=== PATIENT | female | born 1950 | race Caucasian/White ===

== ENCOUNTER 2017-04-29 13:15 | Outpatient (CLI) | payer OTHER | END 2017-04-29 13:31 | disposition home or self-care (01) | LOC: NUCLEAR 13:15 | DX: E11.65 Type 2 diabetes mellitus with hyperglycemia (principal); N18.9 Chronic kidney disease, unspecified ==

== ENCOUNTER 2017-08-21 11:09 | Outpatient (CLI) | payer OTHER | END 2017-08-21 11:25 | disposition home or self-care (01) | LOC: MAMO-SONO 11:09 | DX: N60.11 Diffuse cystic mastopathy of right breast (principal); Z12.31 Encounter for screening mammogram for malignant neoplasm of breast ==

== ENCOUNTER 2019-05-18 10:07 | Outpatient (CLI) | payer OTHER | END 2019-05-18 10:20 | disposition home or self-care (01) | LOC: MAMO-SONO 10:07 | DX: Z12.31 Encounter for screening mammogram for malignant neoplasm of breast (principal); N60.11 Diffuse cystic mastopathy of right breast; E03.8 Other specified hypothyroidism; E03.5 Myxedema coma; E04.2 Nontoxic multinodular goiter ==

== ENCOUNTER 2021-05-30 10:22 | Outpatient (CLI) | payer OTHER | END 2021-05-30 10:28 | disposition home or self-care (01) | LOC: MAMO-SONO 10:22 | PROVIDERS: ATTEND Obstetrics & Gynecology | DX: N60.11 Diffuse cystic mastopathy of right breast (principal) ==

== ENCOUNTER 2022-07-29 10:36 | Outpatient (CLI) | payer OTHER | END 2022-07-29 10:48 | disposition home or self-care (01) | LOC: RAD 10:36 | PROVIDERS: ATTEND Internal Medicine Pulmonary Disease | DX: J44.1 Chronic obstructive pulmonary disease with (acute) exacerbation (principal) ==

== ENCOUNTER 2022-07-31 13:21 | Outpatient (CLI) | payer OTHER | END 2022-07-31 13:24 | disposition home or self-care (01) | LOC: NUCLEAR 13:21 | PROVIDERS: ATTEND Obstetrics & Gynecology | DX: N81.0 Urethrocele (principal); M81.0 Age-related osteoporosis without current pathological fracture ==

== ENCOUNTER 2022-09-25 11:08 | Outpatient (CLI) | payer OTHER | END 2022-09-25 11:16 | disposition home or self-care (01) | LOC: MAMO-SONO 11:08 | PROVIDERS: ATTEND Obstetrics & Gynecology | DX: N60.11 Diffuse cystic mastopathy of right breast (principal); Z12.31 Encounter for screening mammogram for malignant neoplasm of breast ==

== ENCOUNTER 2023-11-05 09:01 | Outpatient (CLI) | payer OTHER ==
[~2023-11-05 09:01] MED LIST: PANTOPRAZOLE SO20 MG PO; SYNTHROID75 MCG PO; ZYRTEC10 M3 PO
== END 2023-11-05 09:07 | disposition home or self-care (01) ==
LOC: MAMO-SONO 09:01
PROVIDERS: ATTEND Surgery
DX: N60.11 Diffuse cystic mastopathy of right breast (principal); N60.12 Diffuse cystic mastopathy of left breast; Z12.31 Encounter for screening mammogram for malignant neoplasm of breast

== ENCOUNTER 2024-08-12 07:06 | Outpatient (CLI) | payer OTHER | END 2024-08-12 07:08 | disposition home or self-care (01) | LOC: NUCLEAR 07:06 | PROVIDERS: ATTEND Internal Medicine | DX: I20.9 Angina pectoris, unspecified (principal) | CPT/HCPCS: 78452; 93017; A9500 ==

== ENCOUNTER → 2024-12-01 09:23 | Outpatient (CLI) | payer OTHER | END | disposition home or self-care (01) | LOC: NUCLEAR 09:23 | PROVIDERS: ATTEND Internal Medicine Rheumatology | DX: M81.0 Age-related osteoporosis without current pathological fracture (principal) ==